=== PATIENT | female | born 1985 | race African-American/Black ===

== ENCOUNTER 2017-09-13 05:48 | Inpatient (IN) ==
[2017-09-13] MEDS ORDERED: ONDANSETRON 4 MG/2 ML VIAL IV PRN (06:07)
[2017-09-13] MEDS: LACTATED RINGERS 1,000 ML IV SCH ×3 (06:30→23:30)
[2017-09-13] MEDS ORDERED: OXYTOCIN/LR 20 UNIT/1,000 ML BAG IV SCH (06:30)
[2017-09-13 06:42] LABS: Basophils % 0.2 % (0.0-0.8); Eosinophils # 0.1 10*3/uL (0.0-0.87); Eosinophils % 0.8 % (0.00-10.9); Hemoglobin 10.2 GM/DL (12.0-16.0); Immature Granulocytes % 1.3 %; Immature Granulocytes Absolute 0.12 #; Lymphocytes % 20.7 % (21.3-54.2); Mean Corpuscular HGB Conc 32.9 GM/DL (32-36); Mean Corpuscular Hemoglobin 28 PG (27-34); Mean Corpuscular Volume 86.1 FL (87-102); Mean Platelet Volume 11.8 FL (9.6-12.0); Monocytes # 0.7 10*3/uL (0.11-0.8); Monocytes % 6.9 % (1.7-12.7); Neutrophils # 6.6 10*3/uL (1.4-7.4); Neutrophils % 70.1 % (38.7-73.9); Platelet Count 192 T/CUMM (130-400); White Blood Count 9.5 T/CUMM (4-12)
[2017-09-13 07:10] LABS: Alanine Aminotransferase 38 U/L (13-56); Albumin 2.8 G/DL (3.4-5.0); Alkaline Phosphatase 202 U/L (45-117); Aspartate Amino Transferase 22 U/L (0-37); Bilirubin,Total < 0.39 MG/DL (0.2-1.0); Blood Urea Nitrogen 9 MG/DL (7-18); Calcium 8.9 MG/DL (8.5-10.1); Glucose 88 MG/DL (74-106); Potassium 4.1 MMOL/L (3.5-5.1); Sodium 136 MMOL/L (136-145); Total Protein 7.2 G/DL (6.4-8.3)
[2017-09-13] MEDS: BUTORPHANOL 2 MG/ML VIAL IV PRN ×2 (10:39→14:56)
[2017-09-13] MEDS ORDERED: FAMOTIDINE 20 MG/2 ML VIAL IV ONE (16:50)
[2017-09-13] MEDS ORDERED: CITRIC ACID/SODIUM CITRATE 30 ML UDCUP PO ONE (16:50)
[2017-09-13] MEDS ORDERED: LACTATED RINGERS 1,000 ML IV ONE (16:50)
[2017-09-13] MEDS ORDERED: CITRIC ACID/SODIUM CITRATE 30 ML UDCUP ONE (16:54)
[2017-09-13] MEDS ORDERED: fentaNYL 2 MCG/ROPIV 0.2% EPID 150 ML EPIDURAL ONE (16:55)
[2017-09-13] MEDS ORDERED: fentaNYL 2 MCG/ROPIV 0.2% EPID 150 ML EPIDURAL SCH (17:00)
[2017-09-13 19:11] LABS: Apearance,Urine CLEAR (Clear); Bacteria,Urine Occasional /HPF (Few); Bilirubin,Urine Negative (Negative); Blood, Urine Negative (Negative); Glucose,Urine (UA) 50 mg/dL (Negative); Ketones,Urine 20 mg/dL (Negative); Mucus,Urine Occasional /LPF (Occasional); Nitrite,Urine Negative (Negative); Protein,Urine 30 MG/DL; RBC,Urine 1 /HPF (0-4); Squamous Epithelial Cell,Urine Occasional /HPF (0-10); Urine Color Yellow (Yellow); Urine Specific Gravity 1.013 (1.001-1.035); Urine Urobilinogen < 2.0 EU/DL (0.2-1.0); WBC,Urine <1 /HPF (0-6)
[2017-09-13] MEDS ORDERED: OXYTOCIN/LR 30 UNIT/1,000 ML BAG IV ONE (20:29)
[2017-09-13] MEDS ORDERED: miSOPROStol 200 MCG TABLET ONE (20:48)
[2017-09-13] MEDS ORDERED: METHYLERGONOVINE 0.2 MG/1 ML AMP ONE (20:48)
[2017-09-13] MEDS ORDERED: LIDOCAINE 1% 50 ML VIAL ONE (21:53)
[2017-09-13] MEDS ORDERED: AMPICILLIN 2,000 MG VIAL ONE (23:25)
[2017-09-13] MEDS ORDERED: OXYTOCIN 10 UNIT/ML VIAL ONE (23:27)
[2017-09-14] MEDS ORDERED: MORPHINE 10 MG/10 ML VIAL ONE (00:20)
[2017-09-14] MEDS ORDERED: MIDAZOLAM 2 MG/2 ML VIAL ONE (00:21)
[2017-09-14] MEDS ORDERED: LIDOCAINE MPF 2% /EPI 20 ML VIAL ONE (00:21)
[2017-09-14 02:18] LABS: Cord Arterial Blood HCO3 21.5 MMOL/L
[2017-09-14 02:43] LABS: Cord Venous Blood HCO3 20.7 MMOL/L; Cord Venous Blood PCO2 47.3 MMHG; Cord Venous Blood PO2 22.2 MMHG
[2017-09-14] MEDS ORDERED: MAGNESIUM HYDROXIDE SUSP 30 ML UDCUP PO PRN (03:18)
[2017-09-14] MEDS ORDERED: BISACODYL 10 MG SUPP RECTAL PRN (03:19)
[2017-09-14] MEDS: ONDANSETRON 4 MG/2 ML VIAL IV PRN ×2 (03:36→07:35)
[2017-09-14] MEDS: LACTATED RINGERS 1,000 ML IV SCH ×2 (05:30→13:43)
[2017-09-14 07:02] LABS: Basophils % 0.1 % (0.0-0.8); Hemoglobin 9.5 GM/DL (12.0-16.0); Immature Granulocytes % 0.7 %; Immature Granulocytes Absolute 0.12 #; Lymphocytes % 5.7 % (21.3-54.2); Mean Corpuscular HGB Conc 32.8 GM/DL (32-36); Mean Corpuscular Hemoglobin 29 PG (27-34); Mean Corpuscular Volume 87.3 FL (87-102); Mean Platelet Volume 12.5 FL (9.6-12.0); Monocytes # 1.1 10*3/uL (0.11-0.8); Neutrophils # 15.4 10*3/uL (1.4-7.4); Neutrophils % 87.5 % (38.7-73.9); Platelet Count 166 T/CUMM (130-400); Red Blood Count 3.32 MC/CUMM (3.8-5.5); Red Cell Distribution Width 15.2 % (9.3-17.3); White Blood Count 17.6 T/CUMM (4-12)
[2017-09-14 07:25] LABS: Band Neutrophils 5 % (0-10); Giant Platelets Few; Hypochromasia 1+; Lymphocytes 5 % (20-55); Ovalocytes Slight; Platelet Estimate Normal; Segmented Neutrophils 84 % (50-85); Total Cells Counted 100
[2017-09-14] MEDS: DOCUSATE SODIUM 100 MG CAPSULE PO SCH ×2 (09:01→20:30)
[2017-09-14] MEDS ORDERED: PROMETHAZINE 25 MG/1 ML VIAL IM PRN (09:42)
[2017-09-14] MEDS: IBUPROFEN 800 MG TABLET PO PRN (20:30)
[2017-09-14] MEDS: FERROUS SULFATE 325 MG TABLET PO SCH (20:30)
[2017-09-15 06:11] LABS: Basophils % 0.3 % (0.0-0.8); Eosinophils # 0.1 10*3/uL (0.0-0.87); Eosinophils % 0.5 % (0.00-10.9); Hematocrit 29.8 VOL% (35.7-47.0); Hemoglobin 9.3 GM/DL (12.0-16.0); Immature Granulocytes Absolute 0.14 #; Lymphocytes # 1.5 10*3/uL (1.4-4.0); Lymphocytes % 10.6 % (21.3-54.2); Mean Corpuscular HGB Conc 31.2 GM/DL (32-36); Mean Corpuscular Hemoglobin 28 PG (27-34); Mean Corpuscular Volume 89.8 FL (87-102); Mean Platelet Volume 11.7 FL (9.6-12.0); Monocytes # 0.9 10*3/uL (0.11-0.8); Monocytes % 6.1 % (1.7-12.7); Neutrophils # 11.7 10*3/uL (1.4-7.4); Neutrophils % 81.5 % (38.7-73.9); Platelet Count 168 T/CUMM (130-400); Red Blood Count 3.32 MC/CUMM (3.8-5.5); Red Cell Distribution Width 15.4 % (9.3-17.3); White Blood Count 14.4 T/CUMM (4-12)
[2017-09-15] MEDS: FERROUS SULFATE 325 MG TABLET PO SCH ×2 (09:21→21:29)
[2017-09-15] MEDS: DOCUSATE SODIUM 100 MG CAPSULE PO SCH ×2 (09:22→21:27)
[2017-09-15] MEDS: IBUPROFEN 800 MG TABLET PO PRN ×2 (09:24→22:43)
[2017-09-15] MEDS ORDERED: BENZOCAINE 20%/MENTHOL 0.5% SPRAY 56 GM CAN TOP PRN (20:40)
[2017-09-16] MEDS ORDERED: SIMETHICONE CHEW 80 MG TABLET PO PRN (00:43)
[2017-09-16 07:19] VITALS: BP 125/75
[2017-09-16] MEDS: DOCUSATE SODIUM 100 MG CAPSULE PO SCH (08:24)
[2017-09-16] MEDS: FERROUS SULFATE 325 MG TABLET PO SCH (08:24)
[2017-09-16] MEDS: IBUPROFEN 800 MG TABLET PO PRN (12:01)
== END 2017-09-16 13:00 | disposition home or self-care (01) | DRG 540 ==
LOC: N.LDOUT 05:48 → N.LD 05:51 → N.OB 09-14 02:54
PROVIDERS: ADMIT Obstetrics & Gynecology; ATTEND Obstetrics & Gynecology
PROC: LDCSECT (ICD-10-PCS; 2017-09-14 02:30)

== ENCOUNTER 2020-12-29 05:58 | Inpatient (IN) ==
[2020-12-29] MEDS: LACTATED RINGERS 1,000 ML IV SCH ×2 (06:19→06:45)
[2020-12-29] MEDS ORDERED: CITRIC ACID/SODIUM CITRATE 30 ML UDCUP PO ONE (06:30)
[2020-12-29] MEDS ORDERED: ceFAZolin 2,000 MG/50 ML DUPLEX IV ONE (06:30)
[2020-12-29] MEDS ORDERED: PROMETHAZINE 25 MG/1 ML VIAL IM ONE (06:33)
[2020-12-29] MEDS ORDERED: FAMOTIDINE 20 MG/2 ML VIAL IV ONE (06:33)
[2020-12-29] MEDS ORDERED: diphenhydrAMINE 50 MG/1 ML VIAL IV PRN (06:33)
[2020-12-29] MEDS ORDERED: LACTATED RINGERS 1,000 ML IV ONE (06:33)
[2020-12-29] MEDS ORDERED: hydrOXYzine HCL 25 MG/1 ML VIAL IM PRN (06:33)
[2020-12-29] MEDS ORDERED: BUPIVACAINE SPINAL 0.75% 2 ML AMP SPINAL ONE (06:44)
[2020-12-29] MEDS ORDERED: ONDANSETRON 4 MG/2 ML VIAL ONE (06:44)
[2020-12-29] MEDS ORDERED: PHENYLEPHRINE 1 MG/10 ML SYRINGE IV ONE (06:44)
[2020-12-29 06:45] LABS: Basophils % 0.4 % (0.0-0.8); Eosinophils # 0.2 10*3/uL (0.0-0.87); Eosinophils % 2.2 % (0.00-10.9); Hematocrit 32.1 VOL% (35.7-47.0); Hemoglobin 10.2 GM/DL (12.0-16.0); Immature Granulocytes Absolute 0.08 #; Lymphocytes # 1.9 10*3/uL (1.4-4.0); Mean Corpuscular HGB Conc 31.8 GM/DL (32-36); Mean Corpuscular Volume 86.8 FL (87-102); Mean Platelet Volume 11.4 FL (9.6-12.0); Monocytes % 7.3 % (1.7-12.7); Neutrophils % 65.1 % (38.7-73.9); Platelet Count 175 T/CUMM (130-400); Red Cell Distribution Width 14.6 % (9.3-17.3); White Blood Count 7.8 T/CUMM (4-12)
[2020-12-29 07:04] LABS: Albumin 2.8 G/DL (3.4-5.0); Bilirubin,Total 0.4 MG/DL (0.20-1.00); Calcium 8.7 MG/DL (8.5-10.1); Potassium 3.5 MMOL/L (3.5-5.1); Total Protein 7.3 G/DL (6.4-8.2)
[2020-12-29] MEDS ORDERED: OXYTOCIN/LR 20 UNIT/1,000 ML BAG IV ONE ×2 (07:08→08:38)
[2020-12-29 07:43] LABS: INR 0.9; PT Patient Result 10.2 SECS (10.5-12.0); Partial Thromboplastin Time 25.7 SECS (23.9-33.8)
[2020-12-29] MEDS ORDERED: GLYCOPYRROLATE 0.4 MG/2 ML VIAL ONE (07:58)
[2020-12-29] MEDS ORDERED: KETOROLAC 30 MG/1 ML VIAL ONE (08:13)
[2020-12-29] MEDS ORDERED: ACETAMINOPHEN INJ 1,000 MG/100 ML VIAL IV ONE (08:13)
[2020-12-29] MEDS ORDERED: ONDANSETRON 4 MG/2 ML VIAL IV PRN (08:38)
[2020-12-29] MEDS ORDERED: ACETAMINOPHEN 325 MG TABLET PO PRN (08:38)
[2020-12-29] MEDS ORDERED: SIMETHICONE CHEW 80 MG TABLET PO PRN (08:38)
[2020-12-29] MEDS ORDERED: RHO(D) IMMUNE GLOBULIN 300 MCG SYRINGE IM ONE (08:38)
[2020-12-29 08:44] LABS: Cord Venous Blood HCO3 24.4 MMOL/L; Cord Venous Blood PCO2 47.5 MMHG; Cord Venous Blood PO2 26.6 MMHG
[2020-12-29 08:45] LABS: Cord Arterial Blood HCO3 20.7 MMOL/L
[2020-12-29 08:48] LABS: Bacteria,Urine Occasional /HPF (Few); Bilirubin,Urine Negative (Negative); Blood, Urine Negative (Negative); Glucose,Urine (UA) Negative (Negative); Ketones,Urine Negative (Negative); Nitrite,Urine Negative (Negative); Protein,Urine Negative; RBC,Urine <1 /HPF (0-4); Urine Appearance CLEAR (Clear); Urine Color Yellow (Yellow); Urine Specific Gravity 1.018 (1.001-1.035); Urine Urobilinogen < 2.0 EU/DL (0.2-1.0)
[2020-12-29] MEDS ORDERED: LACTATED RINGERS 1,000 ML IV SCH (09:00)
[2020-12-29] MEDS ORDERED: HYDROmorphone 2 MG/1 ML VIAL IV ONE (10:12)
[2020-12-29] MEDS: KETOROLAC 30 MG/1 ML VIAL IV SCH ×2 (13:40→20:12)
[2020-12-29] MEDS: ACETAMINOPHEN 500 MG TABLET PO PRN ×2 (13:40→20:13)
[2020-12-29] MEDS: MULTIVITAMIN (PRENATAL) TABLET PO SCH (17:26)
[2020-12-29] MEDS: DOCUSATE SODIUM 100 MG CAPSULE PO SCH ×2 (17:26→22:41)
[2020-12-30] MEDS: KETOROLAC 30 MG/1 ML VIAL IV SCH (01:55)
[2020-12-30] MEDS: ACETAMINOPHEN 500 MG TABLET PO PRN (01:55)
[2020-12-30 05:24] LABS: Basophils # 0.1 10*3/uL (0.0-0.2); Basophils % 0.5 % (0.0-0.8); Eosinophils # 0.1 10*3/uL (0.0-0.87); Eosinophils % 1.3 % (0.00-10.9); Hematocrit 27.8 VOL% (35.7-47.0); Hemoglobin 8.8 GM/DL (12.0-16.0); Immature Granulocytes % 0.7 %; Immature Granulocytes Absolute 0.07 #; Lymphocytes % 18.8 % (21.3-54.2); Mean Corpuscular HGB Conc 31.7 GM/DL (32-36); Mean Corpuscular Volume 86.3 FL (87-102); Mean Platelet Volume 11.1 FL (9.6-12.0); Monocytes % 6.2 % (1.7-12.7); Neutrophils % 72.5 % (38.7-73.9); Platelet Count 159 T/CUMM (130-400); Red Blood Count 3.22 MC/CUMM (3.8-5.5); Red Cell Distribution Width 14.5 % (9.3-17.3); White Blood Count 10.4 T/CUMM (4-12)
[2020-12-30] MEDS: LABETALOL 100 MG TABLET PO SCH ×2 (09:33→20:34)
[2020-12-30] MEDS: MAGNESIUM HYDROXIDE SUSP 30 ML UDCUP PO PRN ×2 (09:34→20:34)
[2020-12-30] MEDS: DOCUSATE SODIUM 100 MG CAPSULE PO SCH ×2 (09:34→20:34)
[2020-12-30] MEDS: MULTIVITAMIN (PRENATAL) TABLET PO SCH (09:34)
[2020-12-30] MEDS: IBUPROFEN 800 MG TABLET PO PRN (20:57)
[2020-12-31] MEDS: IBUPROFEN 800 MG TABLET PO PRN (05:19)
[2020-12-31] MEDS ORDERED: FERROUS SULFATE 325 MG TABLET PO SCH (09:00)
[2020-12-31] MEDS: MULTIVITAMIN (PRENATAL) TABLET PO SCH (10:11)
[2020-12-31] MEDS: MAGNESIUM HYDROXIDE SUSP 30 ML UDCUP PO PRN (10:11)
[2020-12-31] MEDS: DOCUSATE SODIUM 100 MG CAPSULE PO SCH (10:11)
[2020-12-31] MEDS: LABETALOL 100 MG TABLET PO SCH (10:11)
[2020-12-31] MEDS ORDERED: DIPH/TET/ACEL PERT BOOSTER VACCINE 0.5 ML VIAL IM ONE (13:40)
[2020-12-31 16:43] VITALS: BP 137/85
== END 2020-12-31 16:00 | disposition home or self-care (01) | DRG 540 ==
LOC: N.LD 05:58 → N.OB 13:33
PROVIDERS: ADMIT Obstetrics & Gynecology; ATTEND Obstetrics & Gynecology
PROC: LDCSECT (ICD-10-PCS; 2020-12-29 07:30)